=== PATIENT | female | born 1945 | race African-American/Black ===

== ENCOUNTER 2021-11-18 11:08 | Outpatient (CLI) | payer MEDICAID, SELFPAY ==
[2021-11-18 14:48] LABS: Creatinine Urine 159.3 mg/dL
[2021-11-18 14:52] LABS: Microalbumin Creatinine Ratio 0 mg/g (0-30); Microalbumin Urine 1 mg/dL
[2021-11-18 16:46] LABS: Albumin* 4.4 g/dL (3.3-5.0); Chloride* 103 mmol/L (96-114); Potassium* 5.7 mmol/L (3.6-5.1); Sodium* 142 mmol/L (135-149)
[2021-11-18 16:48] LABS: Bilirubin Total* 0.3 mg/dL (0.1-1.5); Creatinine* 0.6 mg/dL (0.5-1.5); Estimated Glomerular Filt Rate 94 ml/min
[2021-11-18 16:49] LABS: Alanine Aminotransferase* 21 U/L (4-35); Alkaline Phosphatase* 87 U/L (40-150); Aspartate Amino Transferase* 21 U/L (12-35); Blood Urea Nitrogen* 21 mg/dL (7-30); Calcium* 9.8 mg/dL (8.4-10.6); Carbon Dioxide* 28 mmol/L (20-32); Glucose* 191 mg/dL (60-115); Total Protein* 7.7 g/dL (6.0-8.3)
== END 2021-11-18 11:09 | disposition home or self-care (01) ==
PROVIDERS: Visit Provider Family Medicine
DX: Z00.00 Encounter for general adult medical examination without abnormal findings (principal); E11.9 Type 2 diabetes mellitus without complications; E78.5 Hyperlipidemia, unspecified
CPT/HCPCS: 80053; 82043; 82570

== ENCOUNTER 2021-12-13 09:22 | Outpatient (CLI) | payer MEDICAID, SELFPAY ==
--- OUTSIDE RECORDS SUMMARY | 2021-12-13 09:24 | XMS_ITS | Clinical Summary ---
:1945 Author Organization [email or web address] [place] [address] Care Team Providers Name Role Phone Pcp, No Primary Care Provider Unavailable Allergies No known active allergies Medications Medication Sig Dispensed Refills Start Date End Date Status miscellaneous medical As directed. 1 Each 0 09/27/2018 Active supply Pill box with am miscIndications: and pm options. Noncompliance rifAMPin (RIFADIN) 300 Take 2 capsules 240 capsule 0 0 Active mg capsuleIndications: by mouth once Positive daily. Take for QuantiFERON-TB Gold 4 months. test isoniazid 300 mg by mouth, take 36 tablet 0 12/10/2019 Active tabletIndications: TB 300mg (1 tabs) lung, latent daily for 12 weeks total. pyridoxine, vitamin Take 1 tablet by 90 tablet 0 12/10/2019 Active B6, (VITAMIN B6) 25 mg mouth once tabletIndications: TB daily. lung, latent metFORMIN (GLUCOPHAGE) TAKE TWO TABLETS 180 Tablet 2 1 Active 500 mg BY MOUTH TWICE A tabletIndications: DAY WITH MEALS Controlled type 2 diabetes mellitus without complication, without long-term current use of insulin (HC) atorvastatin (LIPITOR) Take 1 Tablet by 90 tablet. 3 1 Active 20 mg mouth at tabletIndications: bedtime. Hyperlipidemia, unspecified hyperlipidemia type famotidine (PEPCID) 20 TAKE ONE TABLET 180 Tablet 3 05/18/2020 Active mg tabletIndications: BY MOUTH TWICE A Gastric reflux DAY calcium Take 1 Tablet by 180 Tablet 3 06/10/2020 A ctive carbonate-vitamin D3, mouth 2 times 600 mg-400 unit, 600 daily with mg(1,500mg) -400 unit meals. tabletIndications: Osteopenia, unspecified location Active Problems Problem Noted Date Lack of education 12/25/2019 Overview: No history of formal education. Patient grew up in [facility]. 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 Mild cognitive impairment 11/20/2018 Other hyperlipidemia 05/07/2018 Controlled type 2 diabetes mellitus without complicati on, without 01/31/2017 long-term current use of insulin Resolved Problems Problem Noted Date Resolved Date Diabetes mellitus type 2, uncontrolled, without 06/14/2015 12/29/2015 complications Immunizations Name Administration Dates Next Due COVID-19 vaccine (Moderna 100mcg/0.5mL) PF, MDV 06/22/2020, 05/25/2020 Hepatitis B (Adult) 11/28/2019 Influenza, High-dose Inactivated 12/29/2015 Influenza, IIV4 12/22/2013 Influenza, Inactivated AIIV4 (Age 65+ Years) Preserv 020 Free Influenza, Inactivated IIV3 (Age 65+ Years) Preserv 05/16/19 20, 01/29/2017 Free Pneumococcal Poly,23-Valent (Pneumovax) 12/22/2013 Td (Age >=7 Years) 12/22/2013 Varicella Vaccine 12/22/2013 Social History Tobacco Use Types Packs/Day Years Used Date Never Smoker Smokeless Tobacco: Never Used Tobacco Cessation: Counseling Given: Yes Alcohol Use Standard Drinks/Week Comments No 0 (1 standard drink = 0.6 oz pure alcoho l) Sex Assigned at Date Recorded Not on file Obstetrics History Last Filed Vital Signs Vital Sign Reading Time Taken Comments Blood Pressure 106/70 05/17/2020 4:40 PM PRODUCTION ROUSTABOUT Pulse 81 05/17/2020 4:40 PM PRODUCTION ROUSTABOUT Temperature 36.4 ??C (97.5 ??F) 05/17/2020 4:40 PM PRODUCTION ROUSTABOUT Respiratory Rate - - Oxygen Saturation 97% 05/17/2020 4:40 PM PRODUCTION ROUSTABOUT Inhaled Oxygen Concentration - - Weight 88 kg (194 lb) 05/17/2020 4:40 PM PRODUCTION ROUSTABOUT Height 167.6 cm (5' 6) 05/17/2020 4:40 PM PRODUCTION ROUSTABOUT Body Mass Index 31.31 05/17/2020 4:40 PM PRODUCTION ROUSTABOUT Plan of Treatment Health Maintenance Due Date Last Done Comments Tdap 1956 Zoster (shingles) series for age 0103/12/1997 50+ (1 of 2) Pneumococcal series for age 65+ (2 12/22/2014 12/22/2013 - PCV) Fecal testing non-DNA 08/17/2017 08/17/2016 (FIT,FOBT,iFOBT) for age 45-75 COVID-19 vaccine series (3 - 08/17/2020 06/22/2020, 021 Booster for Moderna series) Depression screening for age 12+ 11/30/2020 12/01/2019, , 05/28/2018, Additional history exists BMI (ht and wt on same day) for 05/17/2021 05/17/2020, 11/10, age 18+ 05/16/2019, Additional history exists Mammogram for age 45-75 06/01/2021 06/01/2020, 05/25/2020 Influenza for age 65+ 11/10/2021 11/28/2019, 05/16/2019, 01/29/2017, Additional history exists Tetanus booster 12/23/2023 12/22/2013 Lipids for age 45-75 11/27/2024 11/28/2019, 09/27/2018, 05/07/2018, Additional history exists Hepatitis C screening for age Completed 09/27/2018 18-79 DEXA/DXA scan for age 65+ Completed 05/25/2020 Results Not on filefrom Last 3 Months Insurance Payer Benefit Plan / Subscriber ID Effective Dates Phone Addre ss Type Group BLUE [employer] [place] [employer] [id number] 2018-Present [address] [address] [facility] [address] Care Teams Chief Knowledge Officer Relationship Specialty Start Date End Date Pcp, No PCP - General 09/29/20 .
--- OUTSIDE RECORDS SUMMARY | 2021-12-13 09:24 | XMS_ITS ---
:1945 Author Care Team Providers Name Role Phone Jeffrey Guzman Primary Care Provider Unavailable Allergies None recorded. Medications Name Status Start Date Stop Date ? ? aspirin 81 mg tablet,delayed release Active ? Not available TAKE ONE TABLET BY MOUTH ONCE DAILY atorvastatin 20 mg tablet Active ? Not av ailable TAKE ONE TABLET BY MOUTH AT BEDTIME calcium carbonate-vitamin d Active ? Not available TAKE 1 TABLET BY MOUTH 2 TIMES DAILY WITH MEALS. calcium/d3 tab 600-400 Active ? Not avail able famotidine 20 mg tablet Active ? Not avai lable TAKE ONE TABLET BY MOUTH TWICE A DAY metformin 500 mg tablet Active ? Not avai lable TAKE TWO TABLETS BY MOUTH TWICE A DAY WITH MEALS rifampin 300 mg capsule Active ? Not avai lable Take 2 capsules (600mg) by mouth one time daily. simvastatin 10 mg tablet Active ? Not brady ilable Problems None recorded. Procedures None recorded. Results Lab Results None recorded. Past Encounters 11/24/2020 Type 2 Diabetes Mellitus without Complic ation Luis Armando Bauer MD: [address] [place] [phone], Ph. 11/23/2020 Type 2 Diabetes Mellitus without Complic ation Luis Armando Bauer MD: [address] [place] [phone], Ph. Social History None recorded. Vaccine List None recorded. Plan of Care Reminders Provider Appointments None recorded. ? ? Lab None recorded. ? ? Referral None recorded. ? ? Procedures None recorded. ? ? Surgeries None recorded. ? ? Imaging None recorded. ? ? Vitals Weight Blood Pressure 191.5 lbs 123/75 mm[Hg]
[2021-12-13 10:22] LABS: SARS PCR* Negative SARS-CoV-2 (Negative)
== END 2021-12-13 09:23 | disposition home or self-care (01) ==
LOC: OP CLINIC 09:23
PROVIDERS: PCP Family Medicine; Visit Provider Surgery
DX: Z12.11 Encounter for screening for malignant neoplasm of colon (principal); Z20.822 Contact with and (suspected) exposure to COVID-19
CPT/HCPCS: 45378; 87635; 99153; J2250; J3010

== ENCOUNTER 2022-03-10 11:50 | Outpatient (CLI) | payer MEDICAID, SELFPAY ==
[2022-03-10 15:16] LABS: Albumin* 4.7 g/dL (3.3-5.0); Chloride* 102 mmol/L (96-114)
[2022-03-10 15:17] LABS: Potassium* 4.9 mmol/L (3.6-5.1); Sodium* 139 mmol/L (135-149)
[2022-03-10 15:19] LABS: Aspartate Amino Transferase* 21 U/L (12-35); Bilirubin Total* 0.4 mg/dL (0.1-1.5); Blood Urea Nitrogen* 21 mg/dL (7-30); Carbon Dioxide* 28 mmol/L (20-32); Cholesterol* 159 mg/dL (90-199); Creatinine* 0.6 mg/dL (0.5-1.5); Estimated Glomerular Filt Rate 94 ml/min
[2022-03-10 15:20] LABS: Alanine Aminotransferase* 23 U/L (4-35); Alkaline Phosphatase* 101 U/L (40-150); Calcium* 10.3 mg/dL (8.4-10.6); Glucose* 163 mg/dL (60-115); Triglycerides* 176 mg/dL (40-149)
[2022-03-10 15:21] LABS: HDL Cholesterol* 46 mg/dL (>=50); LDL Cholesterol Calculated 78 mg/dL (<100)
== END 2022-03-10 11:51 | disposition home or self-care (01) ==
PROVIDERS: PCP Family Medicine; Visit Provider Family Medicine
DX: E78.5 Hyperlipidemia, unspecified (principal); E11.9 Type 2 diabetes mellitus without complications
CPT/HCPCS: 80053; 80061

== ENCOUNTER 2022-11-29 15:51 | Outpatient (CLI) | payer MEDICAID, SELFPAY | END 2022-11-29 15:52 | disposition home or self-care (01) | PROVIDERS: PCP Family Medicine; Visit Provider Family Medicine | DX: E78.5 Hyperlipidemia, unspecified (principal); E11.9 Type 2 diabetes mellitus without complications; Z79.899 Other long term (current) drug therapy | CPT/HCPCS: 80053; 80061; 82043; 82570; 82607 ==

== ENCOUNTER 2023-08-07 11:12 | Outpatient (CLI) | payer MEDICAID, SELFPAY | END 2023-08-07 11:13 | disposition home or self-care (01) | LOC: NFLDREF 11:14 | PROVIDERS: PCP Family Medicine; Visit Provider Internal Medicine | DX: R10.2 Pelvic and perineal pain (principal); E78.5 Hyperlipidemia, unspecified; E11.65 Type 2 diabetes mellitus with hyperglycemia | CPT/HCPCS: 80053; 80061; 82043; 82570; 87086 ==

== ENCOUNTER 2023-11-02 09:31 | Outpatient (CLI) | payer MEDICAID, SELFPAY ==
--- OUTSIDE RECORDS SUMMARY | 2023-11-06 15:56 | XMS_ITS | Clinical Summary ---
Author Organization [facility] Address [place], [place] [address] Care Team Providers Care Automotive Sales Associate Name Role Phone Pcp, No Primary Care Provider Unavailabl e Allergies No known active allergies Medications Medication Sig Dispensed Refills Start Date End Date Status miscellaneous medical supply miscIndications:Nonco mpliance As directed. Pill box with am and pm options. 1 Each 09/27/2018 Active rifAMPin (RIFADIN) 300 mg capsuleIndications:Po sitive QuantiFERON-TB Gold test Take 2 capsules by mouth once daily. Take for 4 months. 240 capsule 12/01/2019 Active isoniazid 300 mg tabletIndications:TB lung, latent by mouth, take 300mg (1 tabs) daily for 12 weeks total. 36 tablet 12/10/2019 Active pyridoxine, vitamin B6, (VITAMIN B6) 25 mg tabletIndications:TB lung, latent Take 1 tablet by mouth once daily. 90 tablet 12/10/2019 Active metFORMIN (GLUCOPHAGE) 500 mg tabletIndications:Con trolled type 2 diabetes mellitus without complication, without long-term current use of insulin (HC) TAKE TWO TABLETS BY MOUTH TWICE A DAY WITH MEALS 180 Tablet 2 05/17/2020 Active atorvastatin (LIPITOR) 20 mg tabletIndications:Hyp erlipidemia, unspecified hyperlipidemia type Take 1 Tablet by mouth at bedtime. 90 tablet. 3 05/17/2020 Active famotidine (PEPCID) 20 mg tabletIndications:Gas tric reflux TAKE ONE TABLET BY MOUTH TWICE A DAY 180 Tablet 3 05/18/2020 Active calcium carbonate-vitamin D3, 600 mg-400 unit, 600 mg(1,500mg) -400 unit tabletIndications:Ost eopenia, unspecified location Take 1 Tablet by mouth 2 times daily with meals. 180 Tablet 3 06/10/2020 Active Active Problems Problem Noted Date Diagnosed Date Lack of education 12/25/2019 Overview: No history of formal education. Patient grew up in [facility]. 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 Mild cognitive impairment 11/20/2018 Other hyperlipidemia 05/07/2018 Controlled type 2 diabetes m ellitus without complication, without long-term current use of insulin 01/31/2017 Resolved Problems Problem Noted Date Diagnosed Date Resolved Date Diabetes mellitus type 2, un controlled, without complications 06/14/2015 12/29/2015 Immunizations Name Administration Dates Next Due COVID-19 vaccine (Moderna 100mcg/0.5mL) PF, MDV 06/22/2020,05/25/2020 Hepatitis B (Adult) 11/28/2019 Influenza, High-dose Inactivated 12/29/2015 Influenza, IIV4 12/22/2013 Influenza, Inactivated AIIV4 (Age 65+ Years) Preserv Free 11/28/2019 Influenza, Inactivated IIV3 (Age 65+ Years) Preserv Free 05/16/2019,01/29/2017 Pneumococcal Poly,23-Valent (Pneumovax) 12/23/19 14 Td (Age >=7 Years) 12/22/2013 Varicella Vaccine 12/22/2013 Social History Tobacco Use Types Packs/Day Years Used Date Smoking Tobacco: Never Smokeless Tobacco: Never Tobacco Cessation:Counseling Given: Yes Alcohol Use Standard Drinks/Week Comments No 0 (1 standard drink = 0.6 oz pur e alcohol) PHQ-2 Answer Date Recorded PHQ-2 TOTAL SCORE 0 11/28/2019 Social Connections Answer Date Recorded Frequency of Communication with Friends and Fami ly Not on file 2021 Financial Resource Strain Answer Date R ecorded Difficulty of Paying Living Expenses Not on file 2021 Difficulty of Paying Living Expenses Not on file 2021 Sex and Gender Information Value Date Recorded Sex Assigned at Not on file Gender Identity Not on file Sexual Orientation Not on file Obstetrics History Last Filed Vital Signs Vital Sign Reading Time Taken Comments Blood Pressure 106/70 05/17/2020 4:40 PM SHOW DOG TRAINER Pulse 81 05/17/2020 4:40 PM SHOW DOG TRAINER Temperature 36.4 ??C (97.5 ??F) 05/17/2020 4:40 PM CS T Respiratory Rate - - Oxygen Saturation 97% 05/17/2020 4:40 PM SHOW DOG TRAINER Inhaled Oxygen Concentration - - Weight 88 kg (194 lb) 05/17/2020 4:40 PM SHOW DOG TRAINER Height 167.6 cm (5' 6) 05/17/2020 4:40 PM SHOW DOG TRAINER Body Mass Index 31.31 05/17/2020 4:40 PM SHOW DOG TRAINER Plan of Treatment Health Maintenance Due Date Last Done Comments Tdap 1956 Zoster (shingles) series for age 50+ (1 of 2) 1997 Pneumococcal series for age 65+ (2 of 2 - PCV) 12/22/2014 12/22/2013 Depression screening for age 12+ 11/30/2020 12/01/2019, 11/28/2019, 05/28/2018, Additional history exists BMI (ht and wt on same day) for age 18+ 05/17/2021 05/17/2020, 11/28/2019, 05/16/2019, Additional history exists COVID-19 vaccine series (2022-24 season) 2022 06/22/2020, 05/25/2020 Influenza for age 65+ 11/11/2023 11/28/2019 , 05/16/2019, 01/29/2017, Additional history exists Tetanus booster 12/23/2023 12/22/2013 Fecal testing non-DNA (FIT,FOBT,iFOBT) for age 45-75 Discontinued 08/17/2016 Hepatitis C screening for ag e 18-79 Completed 09/27/2018 DEXA/DXA scan for age 65+ Completed 05/25/2020 Procedures Procedure Name Priority Date/Time Associated Diagnosis Comments XR DXA BONE DENSITY 2 SITES AXIAL Routine 05/25/2020 8:52 AM CDT Postmenopausal ANTI HCV Routine 09/27/2018 9:16 AM CDT Encounter for hepatitis C screening test for low risk patient OCCULT BLOOD IFOBT STOOL Routine 08/17/2016 4:53 PM CDT Screening for colorectal cancer from Last 3 Months or Most Recently Relevant to Health Maintenance Results * (ABNORMAL) XR DXA BONE DENSITY 2 SITES AXIAL [82474.1] (05/25/2020 8:52 AM CDT) Anatomical Region Laterality Modality Spine, HIPS, HIPL, HIPR Other Impressions 05/25/2020 3:56 PM CDT Osteopenia. RECOMMENDATIONS: The National Osteoporosis Foundation recommends pharmacologic treatment for patients with T-scores of -2.5 or less, patients with prior history of fragility fractures, or patients with 10-year probability of greater than 3% at hips or greater than 20% of suffering major osteoporotic fractures. Recommend continued optimization of calcium and vitamin D intake through dietary means and/or supplementation and regular exercise. Repeat scan recommended in 3-5 years. Arlen Santos PA-C [facility] 05/25/2020 Narrative 05/25/2020 3:56 PM CDT XR DXA Bone Mineral Density (BMD) EXAM LOCATION: [address] [address] PATIENT NAME: Gayatri Bellamy DATE OF : 1945 EXAM DATE: 05/25/2020 REQUESTING PROVIDER: Marley Hernandez MD GENDER AT : female HEIGHT: 5' 6 (05/17/2020) WEIGHT: ??194 lb (05/17/2020) MENOPAUSAL STATUS: Postmenopausal RACE/ETHNICITY: Black or RISK FACTORS: NO RISK FACTORS CURRENT MEDICATION FOR BONE LOSS: NONE INDICATION: SCREENING FOR OSTEOPOROSIS COMPARISON DATE(S): None DXA scans are compared to prior studies for a patient only when the two (or more) studies were performed on the same scanner. It is not possible to compare data generated on one scanner to data from another because there are not standards in DXA equipment. This applies even if the two scanners are made by the same visiting nurse. PROCEDURE: Dual-energy x-ray absorptiometry performed with routine technique. Reporting is completed in the form of a T-score. The T-score represents the standard deviation from peak bone mass based on young healthy adult. A Z-score is used for diagnosis in premenopausal women, and for men under the age of 50. FINDINGS: RESULT LUMBAR SPINE L1 and L2 BMD: 0.928 g/cm2 T-Score: -2.0 Z-Score: -1.8 RESULT FEMORAL NECK Left Total Femoral Neck BMD: 0.796 g/cm2 T-Score: -1.7 Z-Score: -1.3 RESULT TOTAL HIP Bilateral Total Hip BMD: 0.835 g/cm2 T-Score: -1.4 Z-Score: -1.3 WHO criteria: Normal: T-score at or above -1 SD Osteopenia: T-score between -1.1 and -2.4 SD Osteoporosis: T-score at or below -2.5 SD FRAX RISK CALCULATION (USED FOR OSTEOPENIA ONLY): 10-year probability of major osteoporotic fracture: 5.0%. 10-year probability of hip fracture: 1.0%. Marley Hernandez MD DEXA * ANTI HCV (09/27/2018 9:16 AM CDT) Pathologist [facility] HEPATITIS C ANTIBODY Non-React alyssia Non-React alyssia 09/27/2018 2:12 PM CDT [facility] Comment:Antibodies to HCV no t detected; does not exclude the possibility of exposure to HCV. Blood BLOOD SPECIMEN / Unknown Venipuncture / Unknown 09/27/2018 9:16 AM CDT 09/27/2018 9:16 AM CDT [place] Peralta DO [facility] [address] [place] [address], * OCCULT BLOOD IFOBT STOOL (08/17/2016 4:53 PM CDT) Pathologist [facility] STOOL BLOOD ,IFOBT Negative Negative 08/18/2016 11:52 AM CDT [facility] Stool STOOL SPECIMEN / Unknown Non-Blood / Unknown 08/17/2016 4:53 PM CDT 08/17/2016 4:53 PM CDT [place] Peralta DO LABORATORY [facility] [address] [place] [address], from Last 3 Months or Most Recently Relevant to Health Maintenance Care Teams Automotive Sales Associate Relationship Specialty Start Date End Date Pcp, No . PCP - General 09/29/20
--- OUTSIDE RECORDS SUMMARY | 2023-11-06 15:56 | XMS_ITS | Data Portability ---
Author Organization [facility] Address [address] [place] [address] [place] [address] Assessment No assessment recorded. Plan of Treatment Reminders Order Date Submit Date Provider Last Modified By Organization Details Last Modified Time Details Appointments None recorded. Lab CBC 2020 021 christian [facility], [address] [place] [address], [phone], 12:15:27 CMP, serum or plasma 2020 021 [email or web address] 3 [facility], [address] [place] [address], [phone], 12:56:41 lipid panel, serum 2020 021 [email or web address] 3 [facility], [address] [place] [address], [phone], 12:56:56 hemoglobin A1C/hemoglo bin total, QN, blood 2020 021 [email or web address] 3 [facility], [address] [place] [address], [phone], 12:57:13 microalbumi n, urine 2020 021 [email or web address] 3 [facility], [address] [place] [address], [phone], 12:57:27 Referral None recorded. Procedures None recorded. Surgeries None recorded. Imaging None recorded. Medication Orders None recorded. Patient TargetsNo targets recorded. Patient InstructionsNo instructions recorded. Reason for Referral None Reported. Results Created Date Observation Date Name Description Value Unit Range Abnormal Flag Note LastModifiedBy Organization Detail LastModifiedTime 12/02/19 21 12/01/2020 CBC WBC Not Available [address], [phone], 11/24/2020 12:14:39 12/02/1912/01/2020 CBC HGB Not Available [address], [address], 11/24/2020 12:14:39 12/02/1912/01/2020 CBC platelet count Not Available [facility] [address] [place], [address], 11/24/2020 12:14:39 Result Notes None recorded. Medical Equipment None Reported. Medications Name Sig Start Date Stop Date Status Note LastModified by Organization Details LastModified Time calcium/d3 tab 600-400 active Not Available Not Available Not Available calcium carbonate- vitamin d TAKE 1 TABLET BY MOUTH 2 TIMES DAILY WITH MEALS. active Not Available Not Available No t Available metformin 500 mg tablet TAKE TWO TABLETS BY MOUTH TWICE A DAY WITH MEALS active Not Available Not Available No t Available atorvastat in 20 mg tablet TAKE ONE TABLET BY MOUTH AT BEDTIME 2020 active Not Available Not Available Not Avgaby spann simvastati n 10 mg tablet active Not Available Not Available Not Available aspirin 81 mg tablet,del ayed release TAKE ONE TABLET BY MOUTH ONCE DAILY active Not Available Not Available No t Available rifampin 300 mg capsule Take 2 capsules (600mg) by mouth one time daily. active completed 2020 Not Available Not Available Not Available famotidine 20 mg tablet TAKE ONE TABLET BY MOUTH TWICE A DAY 2020 active Not Available Not Available Not Avai nenale Vitals Date Recorded Body weight Systolic blood pressure Diastolic blood pressure Provider Name and Address Organization Details Last Updated DateTime 11/23/2020 94065.94 g 123 mm[Hg] 75 mm[Hg] Luis Armando Bauer MD [address] [place], [phone] 11/23/2020 17:31:09 Social History None recorded. Functional Status None recorded. Mental Status None recorded. Family History Nothing Reported. Medical History No medical history recorded. Gynecological HistoryNo gynecological history recorded. Obstetrics History GPAL:G 0 P 0 0 0 0 Past Encounters Encounter ID Performer Location Encounter Start Date Encounter Closed Date Diagnosis/Indication Diagnosis SNOMED-CT Code [id number] Luis Armando Bauer MD [place] [facility] [address] [place] [address] 11/23/2020 17:12:49 11/23/2020 17:49:27 Type 2 diabetes mellitus without complication [id number] Luis Armando Bauer MD [place] [facility] [address] [place] [phone] 11/24/2020 12:06:36 11/24/2020 13:09:05 Type 2 diabetes mellitus without complication [id number] Health Concerns Section Related Observation LastModified by Organization Detai ls LastModified Time None Recorded Concern Status LastModified by Organization Details LastModified Time None Recorded Advance Directives Directive None Recorded Payers Encounter Date Sequence Insurance Name Policy Number Policy Smith Covered Member ID Smith Member ID Guarantor Name 11/24/2020 1 [place] Gayatri Bellamy [id number] Gayatri Sherobert Mia Notes Date Note Type Note Provider Name and Address Organization Details Recorded Time 11/23/2020 text/html HPI Notes: usu [facility], needs diet for diabetes Luis Armando Bauer MD [address] [place], [phone] 11/23/2020 17:35:55 11/24/2020 text/html HPI Notes: son thinks that she can't go back to [facility], given options she will accept mammogram and lab Luis Armando Bauer MD [address] [place], [address], [facility] 11/24/2020 12:16:22 OBGyn Episode No OBEpisode recorded.
== END 2023-11-02 09:32 | disposition home or self-care (01) ==
PROVIDERS: PCP Family Medicine; Referring Provider Family Medicine; Visit Provider Family Medicine
DX: E11.9 Type 2 diabetes mellitus without complications (principal); Z79.899 Other long term (current) drug therapy
CPT/HCPCS: 80053; 82607

== ENCOUNTER 2024-10-01 14:20 | Outpatient (CLI) | payer MEDICAID, SELFPAY | END 2024-10-01 14:21 | disposition home or self-care (01) | LOC: NFLDREF 14:21 | PROVIDERS: PCP Family Medicine; Visit Provider Family Medicine | DX: Z13.228 Encounter for screening for other metabolic disorders (principal); Z79.1 Long term (current) use of non-steroidal anti-inflammatories (NSAID) | CPT/HCPCS: 80053 ==